=== PATIENT | female | born 1950 | race Asian ===

== ENCOUNTER 2024-07-31 01:56 | Emergency (ER) | payer MEDICARE, BC, SELFPAY ==
[2024-07-31] VITALS (10 sets, daily range): BP systolic 142–207; BP diastolic 63–111; PULSE 69–98; RESP 13–29; TEMP 36.4; O2SAT 96–100; BMI 25.8
--- NOTE | 2024-07-31 02:16 | XR_ITS ---
Examination: PA lateral chest 2 views TECHNIQUE: Upright PA lateral chest 2 views Exam date and time: July 31, 2024 at 0236 hours INDICATIONS: Chest pain headaches today FINDINGS: CABG Minor prominence of ventricle No lobar pneumonia or pulmonary edema Moderate osteopenia IMPRESSION: No pneumonia or pulmonary edema
--- NOTE | 2024-07-31 02:17 | PD.EDRME ---
Rapid Medical Screening Exam RME Arrival date/time: 07/31/24 01:56 73-year-old female past medical history of hypertension, diabetes, hyperlipidemia, and CAD presents emergency department complaining of chest pain that radiates to bilateral shoulders and nausea that awoke her from her sleep. Patient also endorsed headache. Chief Complaint: Chest Pain Time Seen by Provider: 07/31/24 02:01 Vital signs: Vital Signs Temperature 97.6 F 07/31/24 02:03 Pulse Rate 85 07/31/24 02:03 Respiratory Rate 18 07/31/24 02:03 Blood Pressure 207/91 H 07/31/24 02:03 Pulse Oximetry (%) 99 07/31/24 02:03 Oxygen Delivery Method Room Air 07/31/24 02:03 Vital signs reviewed by provider: Yes
--- NOTE | 2024-07-31 02:35 | EDNOTE_ITS ---
ED Chest Pain RME/HPI General Chief Complaint: Chest Pain Stated Complaint: CHEST PAIN RADIATES TO LEFT SHOULDER Time Seen by Provider: 07/31/24 02:01 Source: patient and family Arrival date/time: 07/31/24 01:56 Mode of arrival: ambulatory Limitations: no limitations RME / HPI RME / HPI narrative: 07/31/24 01:56 73-year-old female past medical history of hypertension, diabetes, hyperlipidemia, and CAD presents emergency department complaining of chest pain that radiates to bilateral shoulders and nausea that awoke her from her sleep. Patient also endorsed headache. Dr. Gonzalez?s Main ED Evaluation: The patient is a 73-year-old female who presents to the emergency department via private vehicle with a chief complaint of chest pain. She reports that she awoke from sound sleep to a sudden onset of sharp chest pain, which radiated to her left shoulder. The pain initially lasted for approximately 10 minutes and subsequently worsened upon awakening. The patient describes associated nausea but denies any episodes of vomiting. She reports having been in her usual state of health the previous day with no preceding symptoms or concerns. Her past medical history is significant for diabetes mellitus, hypertension, and hypercholesterolemia. Additionally, she has an extensive cardiac history, including a double bypass surgery in 2018 performed in [place] and a prior myocardial infarction requiring stent placement at [facility]. She follows with Dr. Rivera for cardiology care, with her last appointment occurring last year; she currently has no pending follow-up appointments scheduled. The patient denies any associated symptoms such as shortness of breath, cough, palpitations, diaphoresis, dizziness, or syncope. She has no other medical complaints at this time. Related Data Home Medications ?Medication ?Instructions ?Recorded ?Confirmed clopidogrel 75 mg tablet 75 mg PO QDAY 02/09/18 10/19/22 fenofibrate 160 mg tablet 160 mg PO HS kidney function 01/04/19 10/19/22 gabapentin 100 mg capsule 600 mg PO TID 03/22/19 10/19/22 carvedilol 6.25 mg tablet 6.25 mg PO BID 05/19/19 10/19/22 ferrous sulfate 325 mg (65 mg 325 mg PO BID 05/19/19 10/19/22 iron) tablet ergocalciferol (vitamin D2) 1,250 1,250 mcg PO QWEEK 02/09/20 10/19/22 mcg (50,000 unit) capsule (Vitamin D2) glipizide 5 mg tablet 5 mg PO BID 02/09/20 10/19/22 aspirin 81 mg tablet,delayed 81 mg PO QDAY 12/30/20 10/19/22 release benazepril 5 mg tablet 5 mg PO QDAY 12/30/20 10/19/22 insulin detemir U-100 100 unit/mL 35 unit subcut BID 12/30/20 10/19/22 (3 mL) subcutaneous pen (Levemir FlexTouch U-100 Insulin) liraglutide 0.6 mg/0.1 mL (18 mg/3 1.8 mg subcut QPM 12/30/20 10/19/22 mL) subcutaneous pen injector (Victoza 3-Serafin) loratadine 10 mg tablet 10 mg PO QDAY 12/30/20 10/19/22 nitroglycerin 0.4 mg sublingual 0.4 mg buccal PRN PRN Chest Pain 12/30/20 10/19/22 tablet Allergies Allergy/AdvReac Type Severity Reaction Status Date / Time No Known Allergies Allergy Verified 12/07/23 16:26 Review of Systems Review of Systems Systems Reviewed: All systems reviewed, normal except as documented Past Medical History Past Medical History NEUROLOGIC: Negative Neurological Disorders, Cerebrovascular Accident, Transient Ischemic Attacks (TIA), Dementia, Alzheimer's Disease, Parkinson's Disease, Brain Tumor, Meningitis, Seizures, Epilepsy, Multiple Sclerosis, Cerebral Palsy, Amyotrophic Lateral Sclerosis (ALS/Elaine Gehrig's), Guillain-Absaraka Syndrome, Spina Bifida, Paralysis, Peripheral Neuropathy, Mejia's Palsy, Subdural Hematoma, Migraine, Head Trauma, Spinal Cord Injury or Traumatic Brain Injury CARDIAC: Positive Cardiac Disorders, Myocardial Infarction, Angina, Coronary Artery Disease, Hypercholesterolemia, Congestive Heart Failure, Hypertension and Hypotension; Negative Cardiac Arrhythmia, Atrial Fibrillation, Heart Murmur, Atherosclerotic Heart Disease, Peripheral Vascular Disease, Aneurysm, Congenital Heart Disease, Valvular Heart Disease, Rheumatic Fever, Cardiomyopathy, Edema, Pericarditis, Cellulitis, Deep Vein Thrombosis or Varicose Veins RESPIRATORY: Positive Pneumonia; Negative Chronic Obstructive Pulmonary Disease (COPD), Asthma, Bronchitis, Emphysema, Pulmonary Fibrosis, Cystic Fibrosis, Tuberculosis, Pulmonary Embolism, Pulmonary Edema or Sleep Apnea GASTROINTESTINAL: Negative Gastrointestinal Disorders, Hepatitis, Cirrhosis, Pancreatitis, Celiac Disease, Gall Bladder Disease, Gastrointestinal Bleed, E sophageal Varices, Ruiz's Esophagus, Colitis, Ulcerative Colitis, Diverticulitis, Diverticulosis, Ulcer, Colorectal Cancer, Irritable Bowel, Crohn's Disease, Obstructive Bowel, Hiatal Hernia, Hemorrhoids, Gastroesophageal Reflux Disease or Obesity GENITOURINARY: Positive Genitourinary Disorders, Renal Disease and Kidney Stones; Negative Polycystic Kidney Disease, Neurogenic Bladder, Inguinal Hernia, Dialysis or Benign Prostatic Hyperplasia REPRODUCTIVE: Positive Previous Pregnancies; Negative Breast Cancer, Endometriosis, Genital Herpes, Gonorrhea, Pelvic Inflammatory Disease, Syphilis or Uterine Prolapse MUSCULOSKELETAL: Positive Musculoskeletal Disorders, Arthritis and Fibromyalgia; Negative Muscular Dystrophy, Myasthenia Gravis, Marfan's Syndrome, Bone Cancer, Rheumatoid Arthritis, Osteoporosis, Degenerative Disk Disease, Gout, Scoliosis, Carpal Tunnel Syndrome, Fractures, Degenerative Joint Disease, Osteomyelitis or Poliovirus ENT: Positive Cataracts; Negative Glaucoma, Blind, Retinal Detachment, Macular Degeneration, Ear Infection, Deafness, Head Trauma or Eye Prosthesis ENDOCRINE: Positive Diabetes Mellitus Type 2 and Hypoglycemia; Negative Endocrine Disorders, Diabetes Mellitus Type 1, Verdigre's Syndrome, [place]'s Disease, Hyperthyroidism, Hypothyroidism, Parathyroid Disease, Pituitary Disease, Systemic Lupus Erythematosus, Syndrome of Inappropriate Antidiuretic Hormone (SIADH), Adrenal Disease or Graves' Disease HEMATOLOGIC: Positive Blood Disorders, Anemia and Thalassemia; Negative Leukemia, Hemophilia, Sickle Cell Disease or Clotting Problems PSYCHO/SOCIAL: Positive Depression and Anxiety; Negative Psychiatric Problems, Schizophrenia, Recreational Drug Use, Bipolar Disorder, Behavior Problems, Self-Mutilation, Attention Deficit Disorder, Depression, Post Traumatic Stress Disorder or Eating Disorder OTHER HISTORY: Positive Hospitalization and Shingles; Negative Autoimmune Disease, Down Syndrome, Autism, Developmental Delay, Falls, Blood Transfusions, Blood Transfusion Reaction, Anesthesia Reactions, Organ Transplant, Chemotherapy, Radiation Therapy, Hyperbaric Therapy, MRSA, VRSA, Vancomycin-Resistant Enterococci, Human Immunodeficiency Virus (HIV), Chicken Pox, Measles, Mumps, Rubella ([place] Measles), Pertussis, Clostridium Difficile, Cancer, Breast Cancer, Cervical Cancer, Colorectal Cancer, Lung Cancer or Ovarian Cancer Family History FAMILY HISTORY: Positive Family Cancer (Father kidney cancer. Mother uterine and breast cancer.) and Family Surgery (mother:hysterectomy); Negative Family Psychiatric Problems, Family Respiratory Disorders, Family Cardiac Disorders, Family Gastrointestinal Problems or Family Anesthesia Reaction Surgical History SURGICAL: Positive Cardiac Surgery, Open Heart Surgery, Coronary Artery Bypass Graft, Coronary Stent, Cardiac Catheterization, Angiogram, Ear Surgery and Tubal Ligation; Negative Valve Replacement, Vascular Surgery, Pacemaker, Auto Implanted Cardiovert Defib, Carotid Endarterectomy, Endocrine Surgery, Thyroidectomy, Tympanostomy Tube, Eye Surgery, Nose Surgery, Oral Surgery, Tonsillectomy, Adenoidectomy, Cochlear Implant, Corneal Transplant, Throat Surgery, Abdominal Surgery, Tracheostomy, Gastric Bypass Surgery, Gastrostomy, Bowel Surgery, Nephrectomy, Transurethral Resection, Joint Replacement, Amputation, Open R eduction Internal Fixation, Arthroscopy, Neurologic Surgery, Brain Shunt, Mastectomy, Lumpectomy, Hysterectomy, Section or Organ Transplant Social History SMOKING STATUS: Never smoker SECOND HAND EXPOSURE: No SUBSTANCE USE: does not use ED Exam Narrative Physical exam: GENERAL APPEARANCE: AxOx4, generally well-appearing, no acute distress. HEENT: NC, AT. MMM. EOMI, clear conjunctiva, oropharynx clear. NECK: Supple without lymphadenopathy. No stiffness or restricted ROM. HEART: Normal rate and regular rhythm, normal S1/S1, no m/r/g LUNGS: CTAB, moving air well. No crackles or wheezes are heard. ABDOMEN: Soft, nontender, nondistended with good bowel sounds heard. BACK: No midline C/T/L spine pain or deformity, No CVAT, no obvious deformity. EXTREMITIES: Without cyanosis, clubbing or edema. MUSCULOSKELETAL: FROM of all major joints, no chest tenderness NEUROLOGICAL: Grossly nonfocal. Alert and oriented, moving all 4 extremities. CN not formally tested but appear grossly intact. Observed to ambulate with normal gait. Skin: Warm and dry without any rash. General Limitations: Present no limitations Course Course Course Narrative: CXR is ordered for determining etiology of chest pain. Quality Measures none Orders Category Date Time Status EKG (ED ONLY) *Do not use* NOW Care 07/31/24 01:58 Completed EKG (ED Only) Stat Exams 07/31/24 01:58 Ordered XR chest 2V Stat Exams 07/31/24 02:16 Taken BNP [B-Type Natriuretic Peptide] Stat Lab 07/31/24 02:52 Completed CBC Stat Lab 07/31/24 02:52 Completed Comprehensive Metabolic Panel Stat Lab 07/31/24 02:52 Completed Path Review Blood Smear Stat Lab 07/31/24 02:52 Completed Troponin I Stat Lab 07/31/24 02:52 Completed Troponin I Stat Lab 07/31/24 04:51 Completed Vital Signs Vital signs: Vital Signs Temperature 97.6 F 07/31/24 02:03 Pulse Rate 85 07/31/24 02:03 Respiratory Rate 18 07/31/24 02:03 Blood Pressure 207/91 H 07/31/24 02:03 Pulse Oximetry (%) 99 07/31/24 02:03 Oxygen Delivery Method Room Air 07/31/24 02:03 Chest Pain MDM Narrative MDM Narrative:: Ms. Dewitt is a well-appearing female with a history of coronary artery disease and MIs in the past, stents and coronary artery grafts (last in 2018) who presents with chest pain of low suspicion for cardiac ischemia. Pain is otherwise resolved. EKG and troponin x 2 shows no signs of acute ischemia. Heart score 5 she is appropriate for outpatient follow-up. Chest x-ray on my interpretation shows no acute cardiopulmonary findings, no cardiomegaly, no bony abnormalities, she does have sternotomy wires. Radiology interpretation is pending. As patient is otherwise well-appearing, asymptomatic, stable vital signs, she is appropriate for outpatient follow-up. Scribe Attestation: I, Judy Hilton, am scribing for and in the presence of Dr. Gonzalez. Provider Notation: Although this document has been carefully reviewed, there may still be some phonetic and other typographical errors. These errors are purely grammatical due to imperfections in the software program and should not be construed in any way to compromise the substance of the patient's medical care during this visit. Patient data External records reviewed:: [facility] previous records Clinical information provided by:: patient Social determinants that could affect healthcare access:: none Patient has the following chronic illnesses:: See PMH How is presenting disease/condition affected by chronic disease/condition?: uneffected by Evaluation data The following diagnostics were reviewed and interpreted by me:: lab results, radiology exam(s) and EKG tracing(s) Lab and/or radiology exams considered but not ordered:: n/a Interpretation Summary: See narrative Medications / Prescriptions Medications or Prescriptions considered but not ordered:: n/a Medication administrations:: as above, if any Consultations Consultation(s) initiated? (list below): No Diagnosis Chest Pain Differential Diagnosis: other (Musculoskeletal pain, ACS, AMI, pneumonia) Most likely diagnosis given after review of the tests above:: See clinical impression below Admission Indicated Admission indicated?: not indicated Admission Request Was there a request for admission?: No Disposition Plan Disposition Plan: Discharge Discharge Attestation Discharge Attestation: The patient and all family members were given an opportunity to ask questions and understood the discharge instructions. Discharge instructions specifically effects, indications for sooner follow up or return to the emergency department, and the expected course of current diagnosis. Patient condition: Stable Discharge Plan Plan Patient Disposition: HOME (Self Care) Prescriptions/Referrals Prescriptions/Med Rec: No Action clopidogrel 75 mg tablet 75 mg PO QDAY Hold Instructions: Resume on 02/11/20. Hold Clopidogrel for 3 days. November resume on WedFebruary 10 Patient Comments: TAKE 1 TABLET(S) EVERY DAY BY ORAL ROUTE FOR 30 DAYS. carvedilol 6.25 mg Tablet 6.25 mg PO BID ferrous sulfate 325 mg (65 mg iron) Tablet 325 mg PO BID fenofibrate 160 mg Tablet 160 mg PO HS gabapentin 100 mg Capsule 600 mg PO TID glipizide 5 mg Tablet 5 mg PO BID ergocalciferol (vitamin D2) [Vitamin D2] 1,250 mcg (50,000 unit) Capsule 1,250 mcg PO QWEEK Rx Instructions: mondays. benazepril 5 mg tablet 5 mg PO QDAY aspirin 81 mg tablet,delayed release (DR/EC) 81 mg PO QDAY Patient Comments: TAKE 1 TABLET BY MOUTH EVERY DAY nitroglycerin 0.4 mg tablet, sublingual 0.4 mg BUCCAL PRN PRN (Reason: Chest Pain) loratadine 10 mg tablet 10 mg PO QDAY Patient Comments: TAKE 1 TABLET BY MOUTH EVERY DAY Levemir FlexTouch U100 Insulin 100 unit/mL (3 mL) insulin pen 35 unit SUBCUT BID Victoza 3-Serafin 0.6 mg/0.1 mL (18 mg/3 mL) pen injector 1.8 mg SUBCUT QPM Patient Comments: INJECT 1.8 MG SUBCUTANEOUSLY ONCE A DAY IN THE EVENING Referrals: Jose Guadalupe Mitchell MD [Primary Care Provider] - In 1 week Problem List Clinical Impression: Chest pain, CAD (coronary artery disease) Patient/Caregiver Discharge Instructions Education Materials: ED Chest Pain, Uncertain Cause Additional Instructions: Follow-up with your rn shift mgr, Dr. Rivera in 2 to 3 days for recheck. You can return to the emergency department sooner symptoms worsen or if he notes any new, concerning issues. Print Language: Greenlandic Stand Alone Forms: [employer] Award Info., Patient Portal Info Letter
[2024-07-31 03:07] LABS: Basophils % (Auto) 1 % (0-2.5); Eosinophils # (Auto) 0.3 Thou/mm3 (0.0-0.5); Eosinophils % (Auto) 4 % (0-10); Hematocrit 37.9 % (36.0-46.0); Hemoglobin 11.3 g/dL (12.0-16.0); Immature Granulocytes % (Auto) 0 % (0-0); Immature Granulocytes Auto 0.02 Thou/mm3 (0.00-0.00); Lymphocytes # (Auto) 3.1 Thou/mm3 (1.0-4.8); Lymphocytes % (Auto) 46 % (10-50); Mean Corpuscular HGB Conc 29.8 g/dl (31.0-37.0); Mean Corpuscular Hemoglobin 19.8 pg (25.0-35.0); Mean Corpuscular Volume 66 fL (80-100); Monocytes # (Auto) 0.7 Thou/mm3 (0.0-0.8); Monocytes % (Auto) 10 % (0-12); Neutrophils # (Auto) 2.7 Thou/mm3 (1.8-7.7); Neutrophils % (Auto) 40 % (37-80); Nucleated Red Blood Cell % 0 /100 WBC (0); Platelet Count 253 Thou/mm3 (140-440); RDW Standard Deviation 39.4 fL (36.4-46.3); Red Blood Count 5.71 Miln/mm3 (4.00-5.20); White Blood Count 6.9 Thou/mm3 (3.6-11.0)
[2024-07-31 03:24] LABS: B-Type Natriuretic Peptide 86 pg/mL (0-100)
[2024-07-31 03:25] LABS: Alanine Aminotransferase 20 U/L (10-49); Albumin, Serum 4.7 gm/dL (3.4-4.8); Albumin/Globulin Ratio 1.6 (1.2-2.2); Alkaline Phosphatase 53 U/L (46-116); Anion Gap 11 (7-16); Aspartate Amino Transferase 31 U/L (0-34); BUN/Creatinine Ratio 23 Ratio (12-20); Bilirubin,Total 0.4 mg/dL (0.3-1.2); Blood Urea Nitrogen 30 mg/dL (9-23); Calcium 10.1 mg/dL (8.3-10.6); Calcium (Corrected) 10.1 mg/dL (8.5-10.1); Carbon Dioxide 22.3 mMol/L (20.0-31.0); Chloride 105 mMol/L (98-107); Creatinine (Component) 1.3 mg/dL (0.6-1.3); Estimated Creatinine Clearance 36.3 mL/min (>60); Glucose 325 mg/dL (74-106); Osmolality,Calculated 294 (275-295); Potassium 4.2 mMol/L (3.4-5.1); Sodium 138 mMol/L (136-145); Total Protein 7.7 gm/dL (5.7-8.2); Troponin I 0.035 ng/mL (0.0-0.045); eGFR 44 See Note
[2024-07-31 04:32] LABS: Path Review Blood Smear Sent to Pathologist
[2024-07-31 05:27] LABS: Troponin I 0.036 ng/mL (0.0-0.045)
== END 2024-07-31 05:43 | disposition home or self-care (01) ==
PROVIDERS: Emergency Provider Emergency Medicine; PCP Internal Medicine
DX: I25.10 Atherosclerotic heart disease of native coronary artery without angina pectoris (principal); R07.9 Chest pain, unspecified; R51.9 Headache, unspecified; I45.10 Unspecified right bundle-branch block; I11.0 Hypertensive heart disease with heart failure; I50.9 Heart failure, unspecified; I25.2 Old myocardial infarction; E78.00 Pure hypercholesterolemia, unspecified; Z95.0 Presence of cardiac pacemaker; Z95.5 Presence of coronary angioplasty implant and graft
CPT/HCPCS: 36415; 71046; 80053; 83880; 84484; 85025; 93005; 99283

== ENCOUNTER → 2024-11-08 | Outpatient (CLI) | payer MEDICARE, BC, SELFPAY ==
[2024-11-08 09:31] LABS: Collection Type, Urine Clean Catch; Squamous Epithelial Cell,Urine 0 /hpf (0-5)
[2024-11-08 10:08] LABS: Basophils # (Auto) 0.1 Thou/mm3 (0.0-0.2); Basophils % (Auto) 1 % (0-2.5); Eosinophils # (Auto) 0.3 Thou/mm3 (0.0-0.5); Eosinophils % (Auto) 4 % (0-10); Hematocrit 37.8 % (36.0-46.0); Hemoglobin 11.4 g/dL (12.0-16.0); Immature Granulocytes % (Auto) 0 % (0-0); Immature Granulocytes Auto 0.02 Thou/mm3 (0.00-0.00); Lymphocytes # (Auto) 2.8 Thou/mm3 (1.0-4.8); Lymphocytes % (Auto) 40 % (10-50); Mean Corpuscular HGB Conc 30.2 g/dl (31.0-37.0); Mean Corpuscular Hemoglobin 20.4 pg (25.0-35.0); Mean Corpuscular Volume 68 fL (80-100); Monocytes # (Auto) 0.7 Thou/mm3 (0.0-0.8); Monocytes % (Auto) 10 % (0-12); Neutrophils # (Auto) 3.1 Thou/mm3 (1.8-7.7); Neutrophils % (Auto) 45 % (37-80); Nucleated Red Blood Cell % 0 /100 WBC (0); Platelet Count 274 Thou/mm3 (140-440); RDW Standard Deviation 39.8 fL (36.4-46.3); Red Blood Count 5.59 Miln/mm3 (4.00-5.20); White Blood Count 6.9 Thou/mm3 (3.6-11.0)
[2024-11-08 10:22] LABS: Bilirubin,Urine Negative (Negative); Blood,Urine Negative (Negative); Clarity,Urine Clear (Clear/Hazy); Color,Urine Lt-Yellow (Lt Yel-Yel); Culture Indicated,Urine Not Indicated; Glucose, Urine 4+ (Negative); Ketones,Urine Negative (Negative); Leukocyte Esterase,Urine Negative (Negative); Nitrite,Urine Negative (Negative); Protein,Urine Trace (Neg - Trace); RBC,Urine 1 /hpf (0-3); Specific Gravity,Urine 1.021 (1.001-1.035); Urobilinogen,Urine Negative mg/dL (0.0-1.0); WBC,Urine 1 /hpf (0-5)
[2024-11-08 10:25] LABS: Alanine Aminotransferase 20 U/L (10-49); Albumin, Serum 4.5 gm/dL (3.4-4.8); Albumin/Globulin Ratio 1.5 (1.2-2.2); Alkaline Phosphatase 49 U/L (46-116); Anion Gap 11 (7-16); Aspartate Amino Transferase 24 U/L (0-34); BUN/Creatinine Ratio 21 Ratio (12-20); Bilirubin,Total 0.4 mg/dL (0.3-1.2); Blood Urea Nitrogen 27 mg/dL (9-23); Calcium 9.6 mg/dL (8.3-10.6); Calcium (Corrected) 9.6 mg/dL (8.5-10.1); Carbon Dioxide 25.5 mMol/L (20.0-31.0); Chloride 109 mMol/L (98-107); Creatinine (Component) 1.3 mg/dL (0.6-1.3); Glucose 117 mg/dL (74-106); Osmolality,Calculated 294 (275-295); Potassium 3.9 mMol/L (3.4-5.1); Sodium 145 mMol/L (136-145); Total Protein 7.5 gm/dL (5.7-8.2); eGFR 44 See Note
[2024-11-08 10:41] LABS: Glucose Estimated Average 229 mg/dL (80-131); Hemoglobin A1C 9.6 % Hgb (4.8-6.0)
== END | disposition home or self-care (01) ==
PROVIDERS: PCP Family Medicine; Referring Provider Nurse Practitioner; Visit Provider Nurse Practitioner
DX: E11.649 Type 2 diabetes mellitus with hypoglycemia without coma (principal)
CPT/HCPCS: 36415; 80053; 81001; 83036; 85025

== ENCOUNTER → 2025-04-11 | Outpatient (CLI) | payer MEDICARE, BC, SELFPAY ==
--- NOTE | 2025-04-11 08:30 | XR_ITS ---
Examination: Screening digital mammography, bilateral Computer aided detection 3-D breast Tomosynthesis, bilateral Date and time of exam: April 11, 2025, 0825 hours, compared to mammograms dating to August 05, 2018 Indication: Screening Technique: Nonmagnified MLO, CC views of the breasts to been obtained, reconstructed from 3-D Tomosynthesis images. R2 computer aided detection program utilized for evaluation of suspicious masses and/or abnormal calcifications. 3-D Tomosynthesis images obtained. Findings: The breasts are heterogeneously dense, which may obscure small masses Stable focal asymmetry upper left breast MLO view Benign calcifications No interval suspicious masses Impression: BI-RADS category II: Benign Findings. Recommend 1 year follow-up mammogram.
== END | disposition home or self-care (01) ==
PROVIDERS: PCP Internal Medicine; Referring Provider Internal Medicine; Visit Provider Internal Medicine
DX: Z12.31 Encounter for screening mammogram for malignant neoplasm of breast (principal); R92.323 Mammographic fibroglandular density, bilateral breasts; R92.1 Mammographic calcification found on diagnostic imaging of breast
CPT/HCPCS: 77063; 77067